=== PATIENT | male | born 1980 | race Caucasian/White ===

== ENCOUNTER 2020-07-06 20:49 | Inpatient (IN) ==
[2020-07-06 21:51] LABS: Basophils # 0.1 K/mcL (0.0-0.2); Basophils % 0.6 %; Eosinophils # 0.2 K/mcL (0.0-0.6); Eosinophils % 2.4 %; Hematocrit 38.7 % (37.5-50.1); Immature Granulocytes % 0.1 % (0-4); Lymphocytes # 1.4 K/mcL (0.6-4.6); Lymphocytes % 17.8 %; Mean Corpuscular Hemoglobin 27.6 pg (28.0-33.3); Mean Corpuscular Volume 89.2 fL (83.0-100.0); Mean Platelet Volume 10.4 fL (9.4-12.4); Monocytes # 0.6 K/mcL (0.0-1.3); Monocytes % 7.7 %; Neutrophils # 5.6 K/mcL (1.6-8.9); Platelet Count 251 K/mcL (140-400); Red Blood Count 4.34 M/mcL (4.19-5.50); Red Cell Distribution Width 13.2 % (11.5-14.5); Segmented Neutrophils % 71.4 %; White Blood Count 7.8 K/mcL (4.3-11.1)
[2020-07-06 22:12] LABS: BUN/Creatinine Ratio 18 (6-26); Blood Urea Nitrogen 18 mg/dL (6-20); Calcium 8.4 mg/dL (8.6-10.3); Carbon Dioxide 26 mEq/L (23-29); Chloride 103 mEq/L (98-107); Glucose 144 mg/dL (70-105); Osmolality,Calculated 288 (280-300); Potassium 4.2 mEq/L (3.5-5.1); Sodium 137 mEq/L (136-145); eGFR For African Americans > 60 (> 60); eGFR For Non-African Americans > 60 (> 60)
[2020-07-06 22:17] LABS: Troponin I 0.26 ng/mL (< 0.04)
[2020-07-06] MEDS ORDERED: Furosemide 40 MG/4 ML VIAL IVP ONE (22:28)
[2020-07-06] MEDS ORDERED: Aspirin 325 MG TABLET PO ONE (22:28)
[2020-07-06] MEDS ORDERED: Isovue-370 500 ML BOTTLE IVP ONE (22:30)
[2020-07-07] MEDS ORDERED: Ondansetron 4 MG/2 ML VIAL IVP PRN (00:25)
[2020-07-07] MEDS ORDERED: Naloxone 0.4 MG/ML INJ IVP PRN (00:25)
[2020-07-07 02:34] LABS: Basophils # 0.1 K/mcL (0.0-0.2); Basophils % 1.1 %; Eosinophils # 0.2 K/mcL (0.0-0.6); Eosinophils % 3.4 %; Hematocrit 37.4 % (37.5-50.1); Hemoglobin 11.5 g/dL (12.9-16.9); Immature Granulocytes % 0.5 % (0-4); Lymphocytes # 1.7 K/mcL (0.6-4.6); Lymphocytes % 26.1 %; Mean Corpuscular HGB Conc 30.7 g/dL (31.6-35.5); Mean Corpuscular Hemoglobin 27.3 pg (28.0-33.3); Mean Corpuscular Volume 88.8 fL (83.0-100.0); Mean Platelet Volume 10.2 fL (9.4-12.4); Monocytes # 0.7 K/mcL (0.0-1.3); Neutrophils # 3.8 K/mcL (1.6-8.9); Platelet Count 265 K/mcL (140-400); Red Blood Count 4.21 M/mcL (4.19-5.50); Red Cell Distribution Width 13.4 % (11.5-14.5); Segmented Neutrophils % 57.9 %; White Blood Count 6.6 K/mcL (4.3-11.1)
[2020-07-07 02:45] LABS: INR 1.3; Prothrombin Time 15.2 Seconds (9.4-12.1)
[2020-07-07 03:00] LABS: Alanine Aminotransferase 65 Units/L (7-52); Albumin/Globulin Ratio 1.5 (1.1-2.2); Alkaline Phosphatase 80 Units/L (34-104); Aspartate Amino Transferase 45 Units/L (13-39); BUN/Creatinine Ratio 18 (6-26); Bilirubin,Total 0.3 mg/dL (0.3-1.0); Blood Urea Nitrogen 17 mg/dL (6-20); Calcium 8.4 mg/dL (8.6-10.3); Carbon Dioxide 28 mEq/L (23-29); Chloride 103 mEq/L (98-107); Globulin 2.6 g/dL (2.4-3.5); Glucose 110 mg/dL (70-105); Magnesium 1.9 mg/dL (1.6-2.6); Osmolality,Calculated 288 (280-300); Potassium 3.8 mEq/L (3.5-5.1); Sodium 138 mEq/L (136-145); Total Protein 6.6 g/dL (6.4-8.9); Troponin I 0.25 ng/mL (< 0.04); eGFR For African Americans > 60 (> 60); eGFR For Non-African Americans > 60 (> 60)
[2020-07-07] MEDS ORDERED: Perflutren Lipid Microsphere 1.3 ML in 0.9 % Sodium Chloride 8.7 ML IVP PRN (07:28)
[2020-07-07] MEDS: Furosemide 40 MG/4 ML VIAL IVP SCH (08:22)
[2020-07-07] MEDS: *HR* Heparin 5,000 UNIT/ML VIAL SQ SCH ×2 (08:22→19:19)
[2020-07-07] MEDS: Acetaminophen 325 MG TABLET PO PRN (20:55)
[2020-07-08] MEDS: Melatonin 3 MG TABLET PO PRN (01:00)
[2020-07-08] MEDS: Acetaminophen 325 MG TABLET PO PRN (02:16)
[2020-07-08] MEDS: *HR* Heparin 5,000 UNIT/ML VIAL SQ SCH ×3 (05:20→19:49)
[2020-07-08] MEDS: Furosemide 40 MG/4 ML VIAL IVP SCH (09:07)
[2020-07-08] MEDS: carvediloL 6.25 MG TABLET PO SCH ×2 (09:08→15:43)
[2020-07-08] MEDS: lisinopriL 5 MG TABLET PO SCH ×2 (09:08→19:42)
[2020-07-08] MEDS: Aspirin 81 MG TAB.CHEW PO SCH (09:08)
[2020-07-08] MEDS: Gabapentin 300 MG CAPSULE PO SCH ×3 (09:08→19:42)
[2020-07-08 10:15] LABS: Basophils % 0.7 %; Eosinophils # 0.3 K/mcL (0.0-0.6); Eosinophils % 4.6 %; Hematocrit 42.7 % (37.5-50.1); Immature Granulocytes % 0.4 % (0-4); Lymphocytes # 1.4 K/mcL (0.6-4.6); Lymphocytes % 24.1 %; Mean Corpuscular HGB Conc 30.9 g/dL (31.6-35.5); Mean Corpuscular Hemoglobin 28.6 pg (28.0-33.3); Mean Corpuscular Volume 92.6 fL (83.0-100.0); Mean Platelet Volume 10.4 fL (9.4-12.4); Monocytes # 0.5 K/mcL (0.0-1.3); Monocytes % 9.1 %; Neutrophils # 3.4 K/mcL (1.6-8.9); Platelet Count 266 K/mcL (140-400); Red Blood Count 4.61 M/mcL (4.19-5.50); Red Cell Distribution Width 13.6 % (11.5-14.5); Segmented Neutrophils % 61.1 %; White Blood Count 5.6 K/mcL (4.3-11.1)
[2020-07-08 10:16] LABS: Hemoglobin 13.2 g/dL (12.9-16.9)
[2020-07-08 10:35] LABS: BUN/Creatinine Ratio 18 (6-26); Blood Urea Nitrogen 17 mg/dL (6-20); Calcium 9.3 mg/dL (8.6-10.3); Carbon Dioxide 31 mEq/L (23-29); Chloride 99 mEq/L (98-107); Glucose 174 mg/dL (70-105); Osmolality,Calculated 290 (280-300); Potassium 3.7 mEq/L (3.5-5.1); Sodium 137 mEq/L (136-145); eGFR For African Americans > 60 (> 60); eGFR For Non-African Americans > 60 (> 60)
[2020-07-08 16:09] LABS: ABG Base Excess 7 mEq/L (-2 to 3); ABG HCO3 35 mEq/L (21-27); ABG Oxygen Saturation 91 % (95-98); ABG PCO2 61 mmHg (35-45); ABG PH 7.36 pH Units (7.32-7.45); ABG PO2 66 mmHg (85-104); ABG TCO2 36 mEq/L (20-26)
[2020-07-08] MEDS: *HR* HYDROcodone/Acet 5/325 mg TABLET PO PRN (19:42)
[2020-07-09] MEDS: Acetaminophen 325 MG TABLET PO PRN ×3 (00:11→17:11)
[2020-07-09] MEDS: *HR* HYDROcodone/Acet 5/325 mg TABLET PO PRN ×3 (03:09→20:23)
[2020-07-09 05:39] LABS: ABG Base Excess 4 mEq/L (-2 to 3); ABG HCO3 30 mEq/L (21-27); ABG Oxygen Saturation 97 % (95-98); ABG PCO2 52 mmHg (35-45); ABG PH 7.38 pH Units (7.32-7.45); ABG PO2 97 mmHg (85-104); ABG TCO2 32 mEq/L (20-26)
[2020-07-09] MEDS: *HR* Heparin 5,000 UNIT/ML VIAL SQ SCH ×2 (05:43→17:11)
[2020-07-09] MEDS: Furosemide 40 MG/4 ML VIAL IVP SCH (07:42)
[2020-07-09] MEDS: Gabapentin 300 MG CAPSULE PO SCH ×3 (07:42→20:22)
[2020-07-09] MEDS: Aspirin 81 MG TAB.CHEW PO SCH (07:42)
[2020-07-09] MEDS: lisinopriL 5 MG TABLET PO SCH ×2 (07:42→20:22)
[2020-07-09] MEDS: carvediloL 6.25 MG TABLET PO SCH ×2 (07:43→17:11)
[2020-07-09] MEDS: Spironolactone 12.5 MG TABLET PO SCH (12:21)
[2020-07-09] MEDS ORDERED: Furosemide 40 MG/4 ML VIAL IVP ONE (14:28)
[2020-07-09] MEDS: Melatonin 3 MG TABLET PO PRN (20:23)
[2020-07-09] MEDS ORDERED: Furosemide 40 MG/4 ML VIAL IVP SCH (21:00)
[2020-07-10] MEDS: Acetaminophen 325 MG TABLET PO PRN (02:03)
[2020-07-10 03:46] LABS: BUN/Creatinine Ratio 20 (6-26); Blood Urea Nitrogen 20 mg/dL (6-20); Calcium 8.8 mg/dL (8.6-10.3); Carbon Dioxide 28 mEq/L (23-29); Chloride 101 mEq/L (98-107); Glucose 156 mg/dL (70-105); Osmolality,Calculated 292 (280-300); Potassium 3.8 mEq/L (3.5-5.1); Sodium 138 mEq/L (136-145); eGFR For African Americans > 60 (> 60); eGFR For Non-African Americans > 60 (> 60)
[2020-07-10] MEDS: *HR* Heparin 5,000 UNIT/ML VIAL SQ SCH (05:07)
[2020-07-10] MEDS: *HR* HYDROcodone/Acet 5/325 mg TABLET PO PRN (05:07)
[2020-07-10] MEDS ORDERED: Furosemide 40 MG/4 ML VIAL IVP SCH (09:00)
[2020-07-10] MEDS: Aspirin 81 MG TAB.CHEW PO SCH (09:06)
[2020-07-10] MEDS: Spironolactone 12.5 MG TABLET PO SCH (09:06)
[2020-07-10] MEDS: lisinopriL 5 MG TABLET PO SCH (09:06)
[2020-07-10] MEDS: carvediloL 6.25 MG TABLET PO SCH (09:06)
[2020-07-10] MEDS: Gabapentin 300 MG CAPSULE PO SCH (09:06)
[2020-07-10 11:02] VITALS: BP 118/75
== END 2020-07-10 14:25 | disposition home or self-care (01) | DRG 194 ==
LOC: 2ANU 20:49 → EMEROOARM 20:49 → SUATTDRO 23:11 → 2ANU 23:43
PROVIDERS: ADMIT Family Medicine; ATTEND Internal Medicine

== ENCOUNTER 2020-08-15 19:43 | Observation (INO) ==
[2020-08-15 20:49] LABS: Basophils # 0.1 K/mcL (0.0-0.2); Eosinophils # 0.4 K/mcL (0.0-0.6); Eosinophils % 5.2 %; Hematocrit 41.5 % (37.5-50.1); Hemoglobin 12.5 g/dL (12.9-16.9); Immature Granulocytes % 0.6 % (0-4); Lymphocytes # 1.5 K/mcL (0.6-4.6); Lymphocytes % 21.9 %; Mean Corpuscular HGB Conc 30.1 g/dL (31.6-35.5); Mean Corpuscular Hemoglobin 27.5 pg (28.0-33.3); Mean Corpuscular Volume 91.2 fL (83.0-100.0); Mean Platelet Volume 9.9 fL (9.4-12.4); Monocytes # 0.7 K/mcL (0.0-1.3); Monocytes % 9.8 %; Neutrophils # 4.3 K/mcL (1.6-8.9); Platelet Count 255 K/mcL (140-400); Red Blood Count 4.55 M/mcL (4.19-5.50); Red Cell Distribution Width 13.8 % (11.5-14.5); Segmented Neutrophils % 61.5 %
[2020-08-15 20:56] LABS: INR 1.1; Prothrombin Time 12.8 Seconds (9.4-12.1)
[2020-08-15 21:23] LABS: Troponin I 0.06 ng/mL (< 0.04)
[2020-08-15 21:54] LABS: BUN/Creatinine Ratio 17 (6-26); Blood Urea Nitrogen 14 mg/dL (6-20); Calcium 9.2 mg/dL (8.6-10.3); Carbon Dioxide 29 mEq/L (23-29); Chloride 103 mEq/L (98-107); Glucose 114 mg/dL (70-105); Osmolality,Calculated 289 (280-300); Sodium 139 mEq/L (136-145); eGFR For African Americans > 60 (> 60); eGFR For Non-African Americans > 60 (> 60)
[2020-08-15] MEDS ORDERED: *HR* HYDROcodone/Acet 7.5/325 mg TABLET PO ONE (22:03)
[2020-08-15] MEDS ORDERED: Furosemide 40 MG/4 ML VIAL IVP ONE (22:03)
[2020-08-16] MEDS ORDERED: Melatonin 3 MG TABLET PO PRN (01:08)
[2020-08-16] MEDS ORDERED: Naloxone 0.4 MG/ML INJ IVP PRN (01:08)
[2020-08-16] MEDS ORDERED: Ondansetron 4 MG/2 ML VIAL IVP PRN (01:08)
[2020-08-16] MEDS ORDERED: Acetaminophen 325 MG TABLET PO PRN (01:08)
[2020-08-16] MEDS: Gabapentin 300 MG CAPSULE PO SCH ×4 (01:28→19:20)
[2020-08-16 03:09] LABS: BUN/Creatinine Ratio 15 (6-26); Basophils # 0.1 K/mcL (0.0-0.2); Basophils % 0.8 %; Blood Urea Nitrogen 13 mg/dL (6-20); Calcium 8.9 mg/dL (8.6-10.3); Carbon Dioxide 29 mEq/L (23-29); Chloride 102 mEq/L (98-107); Eosinophils # 0.5 K/mcL (0.0-0.6); Eosinophils % 5.7 %; Glucose 142 mg/dL (70-105); Hematocrit 40.7 % (37.5-50.1); Hemoglobin 12.4 g/dL (12.9-16.9); Immature Granulocytes % 0.6 % (0-4); Lymphocytes # 1.8 K/mcL (0.6-4.6); Lymphocytes % 22.3 %; Magnesium 1.9 mg/dL (1.6-2.6); Mean Corpuscular HGB Conc 30.5 g/dL (31.6-35.5); Mean Corpuscular Hemoglobin 27.7 pg (28.0-33.3); Mean Corpuscular Volume 90.8 fL (83.0-100.0); Mean Platelet Volume 10.1 fL (9.4-12.4); Monocytes # 0.7 K/mcL (0.0-1.3); Monocytes % 9.2 %; Neutrophils # 4.9 K/mcL (1.6-8.9); Osmolality,Calculated 291 (280-300); Phosphorous 3.5 mg/dL (2.7-4.5); Platelet Count 262 K/mcL (140-400); Potassium 3.4 mEq/L (3.5-5.1); Red Blood Count 4.48 M/mcL (4.19-5.50); Red Cell Distribution Width 13.8 % (11.5-14.5); Segmented Neutrophils % 61.4 %; Sodium 139 mEq/L (136-145); White Blood Count 7.9 K/mcL (4.3-11.1); eGFR For African Americans > 60 (> 60); eGFR For Non-African Americans > 60 (> 60)
[2020-08-16 03:19] LABS: INR 1.1; Prothrombin Time 13.2 Seconds (9.4-12.1)
[2020-08-16] MEDS: Aspirin 81 MG TAB.CHEW PO SCH (08:09)
[2020-08-16] MEDS: carvediloL 6.25 MG TABLET PO SCH ×2 (08:09→18:27)
[2020-08-16] MEDS: Furosemide 40 MG/4 ML VIAL IVP SCH ×2 (08:09→18:27)
[2020-08-16 09:09] LABS: ABG Base Excess 3 mEq/L (-2 to 3); ABG HCO3 31 mEq/L (21-27); ABG Oxygen Saturation 60 % (95-98); ABG PCO2 58 mmHg (35-45); ABG PH 7.33 pH Units (7.32-7.45); ABG PO2 34 mmHg (85-104); ABG TCO2 33 mEq/L (20-26)
[2020-08-16] MEDS: *HR* HYDROcodone/Acet 5/325 mg TABLET PO PRN ×2 (10:33→18:27)
[2020-08-16] MEDS: Spironolactone 12.5 MG TABLET PO SCH (15:40)
[2020-08-17] MEDS: *HR* HYDROcodone/Acet 5/325 mg TABLET PO PRN ×2 (01:03→09:04)
[2020-08-17] MEDS ORDERED: *HR* Enoxaparin 40 MG/0.4 ML SYRINGE SQ SCH (06:00)
[2020-08-17 06:55] LABS: Hematocrit 43.9 % (37.5-50.1); Mean Corpuscular HGB Conc 29.6 g/dL (31.6-35.5); Mean Corpuscular Hemoglobin 27.5 pg (28.0-33.3); Mean Corpuscular Volume 92.8 fL (83.0-100.0); Mean Platelet Volume 10.3 fL (9.4-12.4); Platelet Count 269 K/mcL (140-400); Red Blood Count 4.73 M/mcL (4.19-5.50); Red Cell Distribution Width 13.7 % (11.5-14.5); White Blood Count 6.8 K/mcL (4.3-11.1)
[2020-08-17 07:00] VITALS: BP 126/83
[2020-08-17 07:27] LABS: Alanine Aminotransferase 30 Units/L (7-52); Albumin 4.5 g/dL (3.5-5.7); Albumin/Globulin Ratio 1.6 (1.1-2.2); Alkaline Phosphatase 89 Units/L (34-104); Aspartate Amino Transferase 22 Units/L (13-39); BUN/Creatinine Ratio 19 (6-26); Bilirubin,Total 0.4 mg/dL (0.3-1.0); Blood Urea Nitrogen 18 mg/dL (6-20); Calcium 9.2 mg/dL (8.6-10.3); Carbon Dioxide 29 mEq/L (23-29); Chloride 99 mEq/L (98-107); Globulin 2.8 g/dL (2.4-3.5); Glucose 135 mg/dL (70-105); Osmolality,Calculated 290 (280-300); Potassium 3.5 mEq/L (3.5-5.1); Sodium 138 mEq/L (136-145); Total Protein 7.3 g/dL (6.4-8.9); eGFR For African Americans > 60 (> 60); eGFR For Non-African Americans > 60 (> 60)
[2020-08-17] MEDS: Furosemide 40 MG/4 ML VIAL IVP SCH (09:03)
[2020-08-17] MEDS: Gabapentin 300 MG CAPSULE PO SCH (09:04)
[2020-08-17] MEDS: Aspirin 81 MG TAB.CHEW PO SCH (09:04)
[2020-08-17] MEDS: Spironolactone 12.5 MG TABLET PO SCH (09:04)
[2020-08-17] MEDS: carvediloL 6.25 MG TABLET PO SCH (09:04)
== END 2020-08-17 13:19 | disposition home or self-care (01) ==
LOC: 3BNU 19:43 → EMEROOARM 19:43 → SUATTDRO 23:03 → 3BNU 08-16 00:01
PROVIDERS: ADMIT Internal Medicine; ATTEND Registered Nurse

== ENCOUNTER 2021-03-27 19:34 | Inpatient (IN) ==
[2021-03-27 23:40] LABS: Basophils # 0.1 K/mcL (0.0-0.2); Basophils % 0.6 %; Eosinophils # 0.4 K/mcL (0.0-0.6); Eosinophils % 4.3 %; Hematocrit 42.4 % (37.5-50.1); Hemoglobin 13.1 g/dL (12.9-16.9); Immature Granulocytes % 0.3 % (0-4); Lymphocytes # 1.8 K/mcL (0.6-4.6); Lymphocytes % 19.3 %; Mean Corpuscular HGB Conc 30.9 g/dL (31.6-35.5); Mean Corpuscular Hemoglobin 27.2 pg (28.0-33.3); Mean Corpuscular Volume 88.1 fL (83.0-100.0); Mean Platelet Volume 10.2 fL (9.4-12.4); Monocytes # 0.8 K/mcL (0.0-1.3); Monocytes % 8.5 %; Neutrophils # 6.2 K/mcL (1.6-8.9); Platelet Count 295 K/mcL (140-400); Red Blood Count 4.81 M/mcL (4.19-5.50); Red Cell Distribution Width 14.7 % (11.5-14.5); White Blood Count 9.3 K/mcL (4.3-11.1)
[2021-03-27 23:49] LABS: INR 1.3; Prothrombin Time 14.8 Seconds (9.4-12.1)
[2021-03-27 23:51] LABS: Activated Partial Thrombo Time 34.5 Seconds (26.0-36.0)
[2021-03-28] LABS: Alanine Aminotransferase 35 Units/L (7-52); Albumin 4.2 g/dL (3.5-5.7); Albumin/Globulin Ratio 1.6 (1.1-2.2); Alkaline Phosphatase 70 Units/L (34-104); Aspartate Amino Transferase 26 Units/L (13-39); BUN/Creatinine Ratio 15 (6-26); Bilirubin,Total 0.5 mg/dL (0.3-1.0); Blood Urea Nitrogen 14 mg/dL (6-20); Calcium 8.9 mg/dL (8.6-10.3); Carbon Dioxide 28 mEq/L (23-29); Chloride 101 mEq/L (98-107); Globulin 2.7 g/dL (2.4-3.5); Glucose 105 mg/dL (70-105); Osmolality,Calculated 287 (280-300); Potassium 3.5 mEq/L (3.5-5.1); Sodium 138 mEq/L (136-145); Total Protein 6.9 g/dL (6.4-8.9); eGFR For African Americans > 60 (> 60); eGFR For Non-African Americans > 60 (> 60)
[2021-03-28 00:30] LABS: Troponin I 0.12 ng/mL (< 0.04)
[2021-03-28] MEDS ORDERED: methocarbamoL 750 MG TABLET PO ONE (00:45)
[2021-03-28] MEDS ORDERED: Furosemide 40 MG/4 ML VIAL IVP ONE (02:06)
[2021-03-28] MEDS ORDERED: Acetaminophen 325 MG TABLET PO PRN (03:34)
[2021-03-28] MEDS ORDERED: Naloxone 0.4 MG/ML INJ IVP PRN (03:34)
[2021-03-28] MEDS ORDERED: Ondansetron 4 MG/2 ML VIAL IVP PRN (03:34)
[2021-03-28 05:38] LABS: Hematocrit 44.5 % (37.5-50.1); Hemoglobin 13.6 g/dL (12.9-16.9); Mean Corpuscular HGB Conc 30.6 g/dL (31.6-35.5); Mean Corpuscular Volume 88.5 fL (83.0-100.0); Mean Platelet Volume 10.7 fL (9.4-12.4); Platelet Count 335 K/mcL (140-400); Red Blood Count 5.03 M/mcL (4.19-5.50); White Blood Count 9.5 K/mcL (4.3-11.1)
[2021-03-28 05:49] LABS: INR 1.3
[2021-03-28 05:58] LABS: BUN/Creatinine Ratio 13 (6-26); Blood Urea Nitrogen 13 mg/dL (6-20); Calcium 9.2 mg/dL (8.6-10.3); Carbon Dioxide 27 mEq/L (23-29); Chloride 103 mEq/L (98-107); Chol/HDL Ratio 6.4 (0-4.9); Cholesterol 186 mg/dL (< 200); Glucose 109 mg/dL (70-105); HDL Cholesterol 29 mg/dL (40-59); LDL Cholesterol,Calculated 116 mg/dL (< 100); Magnesium 1.9 mg/dL (1.6-2.6); Osmolality,Calculated 281 (280-300); Phosphorous 3.2 mg/dL (2.7-4.5); Potassium 3.5 mEq/L (3.5-5.1); Sodium 135 mEq/L (136-145); Triglycerides 206 mg/dL (< 150); eGFR For African Americans > 60 (> 60); eGFR For Non-African Americans > 60 (> 60)
[2021-03-28] MEDS ORDERED: Perflutren Lipid Microsphere 1.3 ML in 0.9 % Sodium Chloride 8.7 ML IVP PRN (07:07)
[2021-03-28] MEDS: *HR* OxyCODONE Immed Rel 5 MG TABLET PO PRN ×2 (07:46→17:41)
[2021-03-28] MEDS: Aspirin 81 MG TAB.CHEW PO SCH (07:46)
[2021-03-28] MEDS: carvediloL 6.25 MG TABLET PO SCH ×2 (07:47→17:41)
[2021-03-28] MEDS: Sacubitril/Valsartan 49/51 MG 1 TABLET PO SCH ×2 (07:47→20:57)
[2021-03-28] MEDS: *HR* Enoxaparin 40 MG/0.4 ML SYRINGE SQ SCH ×2 (07:47→20:57)
[2021-03-28] MEDS: Spironolactone 12.5 MG TABLET PO SCH (07:47)
[2021-03-28] MEDS ORDERED: Furosemide 40 MG/4 ML VIAL IVP SCH (09:00)
[2021-03-28 09:24] LABS: Amphetamine Screen,Urine Negative ng/mL (Cutoff=1000); Barbiturate Screen,Urine Negative ng/mL (Cutoff=200); Benzodiazepines Screen,Urine Negative ng/mL (Cutoff=200); Cannabinoid Screen,Urine Positive ng/mL (Cutoff = 50); Cocaine Screen,Urine Negative ng/mL (Cutoff= 300); Opiate Screen,Urine Negative ng/mL (Cutoff=300); Phencyclidine Screen,Urine Negative ng/mL (Cutoff=25)
[2021-03-28] MEDS: Furosemide 40 MG/4 ML VIAL IVP SCH (17:41)
[2021-03-28] MEDS ORDERED: Furosemide 20 MG/2 ML VIAL IVP SCH (18:00)
[2021-03-29 04:10] LABS: Basophils # 0.1 K/mcL (0.0-0.2); Basophils % 1.2 %; Eosinophils # 0.3 K/mcL (0.0-0.6); Eosinophils % 5.3 %; Hematocrit 41.6 % (37.5-50.1); Hemoglobin 13.1 g/dL (12.9-16.9); Immature Granulocytes % 0.3 % (0-4); Lymphocytes # 1.9 K/mcL (0.6-4.6); Lymphocytes % 28.7 %; Mean Corpuscular HGB Conc 31.5 g/dL (31.6-35.5); Mean Corpuscular Hemoglobin 27.9 pg (28.0-33.3); Mean Corpuscular Volume 88.5 fL (83.0-100.0); Mean Platelet Volume 10.9 fL (9.4-12.4); Monocytes # 0.7 K/mcL (0.0-1.3); Monocytes % 10.4 %; Neutrophils # 3.5 K/mcL (1.6-8.9); Platelet Count 304 K/mcL (140-400); Red Cell Distribution Width 14.7 % (11.5-14.5); Segmented Neutrophils % 54.1 %; White Blood Count 6.4 K/mcL (4.3-11.1)
[2021-03-29 04:11] LABS: BUN/Creatinine Ratio 14 (6-26); Blood Urea Nitrogen 15 mg/dL (6-20); Calcium 9.1 mg/dL (8.6-10.3); Carbon Dioxide 31 mEq/L (23-29); Chloride 101 mEq/L (98-107); Glucose 106 mg/dL (70-105); Osmolality,Calculated 279 (280-300); Potassium 3.1 mEq/L (3.5-5.1); Sodium 134 mEq/L (136-145); eGFR For African Americans > 60 (> 60); eGFR For Non-African Americans > 60 (> 60)
[2021-03-29] MEDS: Furosemide 40 MG/4 ML VIAL IVP SCH ×2 (05:12→16:53)
[2021-03-29] MEDS: *HR* Enoxaparin 40 MG/0.4 ML SYRINGE SQ SCH (08:01)
[2021-03-29] MEDS: Aspirin 81 MG TAB.CHEW PO SCH (08:01)
[2021-03-29] MEDS: Spironolactone 12.5 MG TABLET PO SCH (08:01)
[2021-03-29] MEDS: Sacubitril/Valsartan 49/51 MG 1 TABLET PO SCH ×2 (08:01→22:16)
[2021-03-29] MEDS: *HR* OxyCODONE Immed Rel 5 MG TABLET PO PRN ×3 (08:01→22:15)
[2021-03-29] MEDS: carvediloL 6.25 MG TABLET PO SCH ×2 (08:01→15:51)
[2021-03-30] MEDS: Furosemide 40 MG/4 ML VIAL IVP SCH (05:48)
[2021-03-30 07:33] LABS: Basophils # 0.1 K/mcL (0.0-0.2); Basophils % 1.1 %; Eosinophils # 0.4 K/mcL (0.0-0.6); Eosinophils % 5.7 %; Hematocrit 44.4 % (37.5-50.1); Immature Granulocytes % 0.3 % (0-4); Lymphocytes # 1.8 K/mcL (0.6-4.6); Lymphocytes % 23.2 %; Mean Corpuscular HGB Conc 31.5 g/dL (31.6-35.5); Mean Corpuscular Hemoglobin 27.9 pg (28.0-33.3); Mean Corpuscular Volume 88.6 fL (83.0-100.0); Mean Platelet Volume 10.4 fL (9.4-12.4); Monocytes # 0.8 K/mcL (0.0-1.3); Neutrophils # 4.4 K/mcL (1.6-8.9); Platelet Count 323 K/mcL (140-400); Red Blood Count 5.01 M/mcL (4.19-5.50); Red Cell Distribution Width 14.8 % (11.5-14.5); Segmented Neutrophils % 58.7 %; White Blood Count 7.6 K/mcL (4.3-11.1)
[2021-03-30 07:36] VITALS: BP 122/73; PULSE 74; TEMP 97.6; O2SAT 96
[2021-03-30 07:50] LABS: BUN/Creatinine Ratio 19 (6-26); Blood Urea Nitrogen 19 mg/dL (6-20); Carbon Dioxide 28 mEq/L (23-29); Chloride 105 mEq/L (98-107); Glucose 134 mg/dL (70-105); Osmolality,Calculated 282 (280-300); Potassium 3.7 mEq/L (3.5-5.1); Sodium 134 mEq/L (136-145); eGFR For African Americans > 60 (> 60); eGFR For Non-African Americans > 60 (> 60)
[2021-03-30] MEDS ORDERED: *HR* Enoxaparin 40 MG/0.4 ML SYRINGE SQ SCH (09:00)
[2021-03-30] MEDS: Sacubitril/Valsartan 49/51 MG 1 TABLET PO SCH (09:08)
[2021-03-30] MEDS: Spironolactone 12.5 MG TABLET PO SCH (09:09)
[2021-03-30] MEDS: carvediloL 6.25 MG TABLET PO SCH (09:09)
[2021-03-30] MEDS: Aspirin 81 MG TAB.CHEW PO SCH (09:09)
[2021-03-30] MEDS: *HR* OxyCODONE Immed Rel 5 MG TABLET PO PRN (09:12)
== END 2021-03-30 12:18 | disposition home or self-care (01) | DRG 194 ==
LOC: 3BNU 19:34 → EMEROOARM 19:34 → SUATTDRO 03-28 03:33 → 3BNU 03-28 04:27 → SUATTDRO 03-29 20:23
PROVIDERS: ADMIT Internal Medicine; ATTEND Registered Nurse

== ENCOUNTER 2021-05-07 09:58 | Observation (INO) ==
[2021-05-07 12:56] LABS: Basophils # 0.1 K/mcL (0.0-0.2); Basophils % 0.6 %; Eosinophils # 0.3 K/mcL (0.0-0.6); Eosinophils % 3.4 %; Hematocrit 44.5 % (37.5-50.1); Hemoglobin 14.1 g/dL (12.9-16.9); Immature Granulocytes % 0.5 % (0-4); Lymphocytes # 1.4 K/mcL (0.6-4.6); Mean Corpuscular HGB Conc 31.7 g/dL (31.6-35.5); Mean Corpuscular Hemoglobin 28.1 pg (28.0-33.3); Mean Corpuscular Volume 88.6 fL (83.0-100.0); Mean Platelet Volume 10.5 fL (9.4-12.4); Monocytes # 0.6 K/mcL (0.0-1.3); Monocytes % 8.1 %; Neutrophils # 5.5 K/mcL (1.6-8.9); Platelet Count 263 K/mcL (140-400); Red Blood Count 5.02 M/mcL (4.19-5.50); Red Cell Distribution Width 14.6 % (11.5-14.5); Segmented Neutrophils % 69.4 %; White Blood Count 7.9 K/mcL (4.3-11.1)
[2021-05-07 13:29] LABS: BUN/Creatinine Ratio 14 (6-26); Blood Urea Nitrogen 13 mg/dL (6-20); Calcium 9.3 mg/dL (8.6-10.3); Carbon Dioxide 26 mEq/L (23-29); Chloride 105 mEq/L (98-107); Glucose 118 mg/dL (70-105); Osmolality,Calculated 293 (280-300); Potassium 3.9 mEq/L (3.5-5.1); Sodium 141 mEq/L (136-145); eGFR For African Americans > 60 (> 60); eGFR For Non-African Americans > 60 (> 60)
[2021-05-07] MEDS ORDERED: Furosemide 40 MG/4 ML VIAL IVP ONE (14:03)
[2021-05-07] MEDS ORDERED: Ketorolac 30 MG/ML VIAL IVP ONE (14:35)
[2021-05-07 15:42] LABS: Troponin I 0.06 ng/mL (< 0.04)
[2021-05-07 15:55] LABS: INR 1.3; Prothrombin Time 14.2 Seconds (9.4-12.1)
[2021-05-07 15:58] LABS: Activated Partial Thrombo Time 33.5 Seconds (26.0-36.0)
[2021-05-07] MEDS ORDERED: Melatonin 3 MG TABLET PO PRN (15:58)
[2021-05-07] MEDS ORDERED: Acetaminophen 325 MG TABLET PO PRN (15:58)
[2021-05-07] MEDS ORDERED: Naloxone 0.4 MG/ML INJ IVP PRN (15:58)
[2021-05-07] MEDS ORDERED: Isovue-370 500 ML BOTTLE IVP ONE (16:26)
[2021-05-07 16:33] LABS: Influenza A PCR Negative (Negative); Influenza B PCR Negative (Negative); Resp. Syncytial Virus PCR Negative (Negative); SARS-CoV-2 by PCR (In House) Negative (Negative)
[2021-05-07] MEDS: carvediloL 25 MG TABLET PO SCH (17:46)
[2021-05-07] MEDS: *HR* Heparin 5,000 UNIT/ML VIAL SQ SCH (17:47)
[2021-05-07] MEDS: Sacubitril/Valsartan 49/51 MG 1 TABLET PO SCH (22:30)
[2021-05-08 04:33] LABS: Basophils # 0.1 K/mcL (0.0-0.2); Basophils % 0.9 %; Eosinophils # 0.3 K/mcL (0.0-0.6); Eosinophils % 4.3 %; Hematocrit 43.7 % (37.5-50.1); Hemoglobin 13.6 g/dL (12.9-16.9); Immature Granulocytes % 0.3 % (0-4); Lymphocytes # 1.6 K/mcL (0.6-4.6); Lymphocytes % 24.6 %; Mean Corpuscular HGB Conc 31.1 g/dL (31.6-35.5); Mean Corpuscular Hemoglobin 27.6 pg (28.0-33.3); Mean Corpuscular Volume 88.6 fL (83.0-100.0); Mean Platelet Volume 10.7 fL (9.4-12.4); Monocytes # 0.7 K/mcL (0.0-1.3); Monocytes % 10.5 %; Platelet Count 252 K/mcL (140-400); Red Blood Count 4.93 M/mcL (4.19-5.50); Red Cell Distribution Width 14.7 % (11.5-14.5); Segmented Neutrophils % 59.4 %; White Blood Count 6.7 K/mcL (4.3-11.1)
[2021-05-08] MEDS: *HR* Heparin 5,000 UNIT/ML VIAL SQ SCH (05:30)
[2021-05-08] MEDS ORDERED: Spironolactone 12.5 MG TABLET PO SCH (09:00)
[2021-05-08] MEDS ORDERED: Aspirin 81 MG TAB.CHEW PO SCH (09:00)
[2021-05-08] MEDS ORDERED: Furosemide 40 MG/4 ML VIAL IVP SCH (09:00)
[2021-05-08] MEDS: Sacubitril/Valsartan 49/51 MG 1 TABLET PO SCH (09:09)
[2021-05-08] MEDS: carvediloL 25 MG TABLET PO SCH (09:09)
[2021-05-08 12:32] VITALS: BP 159/94; PULSE 80; TEMP 97.3; O2SAT 98
== END 2021-05-08 14:43 | disposition home or self-care (01) ==
LOC: 3ANU 09:58 → EMEROOARM 09:58 → 3ANU 17:00
PROVIDERS: ADMIT Student in an Organized Health Care Education/Training Program; ATTEND Student in an Organized Health Care Education/Training Program

== ENCOUNTER 2021-08-22 02:21 | Inpatient (IN) ==
[2021-08-22] MEDS ORDERED: Furosemide 40 MG/4 ML VIAL IVP ONE ×2 (02:36→04:11)
[2021-08-22 03:08] LABS: Basophils % 0.4 %; Eosinophils # 0.1 K/mcL (0.0-0.6); Hematocrit 43.4 % (37.5-50.1); Hemoglobin 12.8 g/dL (12.9-16.9); Immature Granulocytes % 0.2 % (0-4); Lymphocytes # 0.8 K/mcL (0.6-4.6); Lymphocytes % 8.9 %; Mean Corpuscular HGB Conc 29.5 g/dL (31.6-35.5); Mean Corpuscular Volume 91.6 fL (83.0-100.0); Mean Platelet Volume 10.4 fL (9.4-12.4); Monocytes # 0.8 K/mcL (0.0-1.3); Monocytes % 8.6 %; Neutrophils # 7.2 K/mcL (1.6-8.9); Platelet Count 341 K/mcL (140-400); Red Blood Count 4.74 M/mcL (4.19-5.50); Red Cell Distribution Width 13.6 % (11.5-14.5); Segmented Neutrophils % 80.9 %; White Blood Count 8.9 K/mcL (4.3-11.1)
[2021-08-22 03:28] LABS: Troponin I 0.17 ng/mL (< 0.04)
[2021-08-22 03:49] LABS: Bilirubin,Urine Negative (Negative); Blood,Urine Small (Negative); Clarity,Urine Clear (Clear); Color,Urine Yellow (Yellow); Glucose,Urine (UA) Normal (Normal); Hyaline Casts,Urine Few per lpf (None Seen); Ketones,Urine Negative (Negative); Leukocyte Esterase,Urine Moderate (Negative); Mucus,Urine Moderate per lpf (None-Few); Nitrite,Urine Negative (Negative); PH,Urine 6.5 pH Units (5.0-8.0); Protein,Urine >=600 mg/dL (Neg-Trace); RBC,Urine 0-3 per hpf (0-3); Specific Gravity,Urine 1.025 (1.010-1.025); Squamous Epithelial Cell,Urine Few per hpf (None-Few); Urobilinogen,Urine Normal (Normal); WBC,Urine 15-30 per hpf (0-3)
[2021-08-22 03:54] LABS: Alanine Aminotransferase 8 Units/L (7-52); Albumin/Globulin Ratio 1.3 (1.1-2.2); Alkaline Phosphatase 76 Units/L (34-104); Aspartate Amino Transferase 12 Units/L (13-39); BUN/Creatinine Ratio 17 (6-26); Bilirubin,Direct 0.1 mg/dL (0.0-0.2); Bilirubin,Indirect 0.5 mg/dL (0.0-1.0); Bilirubin,Total 0.6 mg/dL (0.3-1.0); Blood Urea Nitrogen 14 mg/dL (6-20); Calcium 9.4 mg/dL (8.6-10.3); Carbon Dioxide 31 mEq/L (23-29); Chloride 96 mEq/L (98-107); Globulin 3.2 g/dL (2.4-3.5); Glucose 108 mg/dL (70-105); Osmolality,Calculated 289 (280-300); Potassium 3.8 mEq/L (3.5-5.1); Sodium 139 mEq/L (136-145); Total Protein 7.2 g/dL (6.4-8.9); eGFR For African Americans > 60 (> 60); eGFR For Non-African Americans > 60 (> 60)
[2021-08-22] MEDS ORDERED: Melatonin 3 MG TABLET PO PRN (04:25)
[2021-08-22] MEDS ORDERED: Naloxone 0.4 MG/ML INJ IVP PRN (04:25)
[2021-08-22] MEDS ORDERED: Perflutren Lipid Microsphere 1.3 ML in 0.9 % Sodium Chloride 8.7 ML IVP PRN (04:25)
[2021-08-22] MEDS ORDERED: Ondansetron 4 MG/2 ML VIAL IVP PRN (04:25)
[2021-08-22] MEDS: Furosemide 40 MG/4 ML VIAL IVP SCH ×2 (08:08→16:03)
[2021-08-22] MEDS: Acetaminophen 325 MG TABLET PO PRN ×2 (10:53→17:44)
[2021-08-22] MEDS: *HR* Heparin 5,000 UNIT/ML VIAL SQ SCH ×2 (14:03→21:43)
[2021-08-22] MEDS: carvediloL 6.25 MG TABLET PO SCH (16:03)
[2021-08-23] MEDS: *HR* Heparin 5,000 UNIT/ML VIAL SQ SCH ×3 (05:36→21:40)
[2021-08-23 05:46] LABS: Hemoglobin 11.9 g/dL (12.9-16.9); Mean Corpuscular Hemoglobin 27.3 pg (28.0-33.3); Mean Platelet Volume 10.4 fL (9.4-12.4); Platelet Count 307 K/mcL (140-400); Red Blood Count 4.36 M/mcL (4.19-5.50); Red Cell Distribution Width 13.7 % (11.5-14.5); White Blood Count 8.8 K/mcL (4.3-11.1)
[2021-08-23] MEDS: Aspirin Enteric Coated 81 MG Tablet PO SCH (08:48)
[2021-08-23] MEDS: carvediloL 6.25 MG TABLET PO SCH ×2 (08:48→16:18)
[2021-08-23] MEDS: Furosemide 40 MG/4 ML VIAL IVP SCH ×2 (08:49→16:18)
[2021-08-24 01:12] LABS: Basophils # 0.1 K/mcL (0.0-0.2); Basophils % 0.8 %; Eosinophils # 0.3 K/mcL (0.0-0.6); Eosinophils % 3.6 %; Hematocrit 43.5 % (37.5-50.1); Immature Granulocytes % 0.4 % (0-4); Immature Platelets 3.6 % (1.1-6.1); Lymphocytes # 1.1 K/mcL (0.6-4.6); Lymphocytes % 12.9 %; Mean Corpuscular HGB Conc 29.9 g/dL (31.6-35.5); Mean Corpuscular Hemoglobin 27.6 pg (28.0-33.3); Mean Corpuscular Volume 92.4 fL (83.0-100.0); Mean Platelet Volume 10.5 fL (9.4-12.4); Monocytes # 0.8 K/mcL (0.0-1.3); Monocytes % 9.3 %; Neutrophils # 6.1 K/mcL (1.6-8.9); Platelet Count 284 K/mcL (140-400); Red Blood Count 4.71 M/mcL (4.19-5.50); Red Cell Distribution Width 13.8 % (11.5-14.5); White Blood Count 8.3 K/mcL (4.3-11.1)
[2021-08-24 01:47] LABS: Platelet Estimate Normal (Normal)
[2021-08-24 02:26] LABS: BUN/Creatinine Ratio 19 (6-26); Blood Urea Nitrogen 18 mg/dL (6-20); Calcium 8.7 mg/dL (8.6-10.3); Carbon Dioxide 41 mEq/L (23-29); Chloride 95 mEq/L (98-107); Glucose 133 mg/dL (70-105); Magnesium 2.1 mg/dL (1.6-2.6); Osmolality,Calculated 294 (280-300); Potassium 3.8 mEq/L (3.5-5.1); Sodium 140 mEq/L (136-145); eGFR For African Americans > 60 (> 60); eGFR For Non-African Americans > 60 (> 60)
[2021-08-24] MEDS: Acetaminophen 325 MG TABLET PO PRN ×2 (05:43→18:55)
[2021-08-24] MEDS: *HR* Heparin 5,000 UNIT/ML VIAL SQ SCH ×3 (05:44→21:44)
[2021-08-24] MEDS: Furosemide 40 MG TABLET PO SCH (09:35)
[2021-08-24] MEDS: Aspirin Enteric Coated 81 MG Tablet PO SCH (09:35)
[2021-08-24] MEDS: Spironolactone 25 MG TABLET PO SCH (09:36)
[2021-08-24] MEDS: carvediloL 6.25 MG TABLET PO SCH ×2 (09:36→17:10)
[2021-08-24] MEDS: Sacubitril/Valsartan 49/51 MG 1 TABLET PO SCH ×2 (12:52→21:43)
[2021-08-24] MEDS: Fluticasone Propionate Nasal 50 MCG/SPRAY BOTTLE NS SCH (21:43)
[2021-08-25 04:03] LABS: Basophils # 0.1 K/mcL (0.0-0.2); Basophils % 0.8 %; Eosinophils # 0.4 K/mcL (0.0-0.6); Eosinophils % 4.6 %; Hematocrit 38.2 % (37.5-50.1); Immature Granulocytes % 0.5 % (0-4); Lymphocytes % 13.8 %; Mean Corpuscular HGB Conc 29.1 g/dL (31.6-35.5); Mean Corpuscular Hemoglobin 27.3 pg (28.0-33.3); Mean Corpuscular Volume 93.9 fL (83.0-100.0); Mean Platelet Volume 10.5 fL (9.4-12.4); Monocytes # 0.7 K/mcL (0.0-1.3); Monocytes % 9.2 %; Neutrophils # 5.4 K/mcL (1.6-8.9); Platelet Count 288 K/mcL (140-400); Red Blood Count 4.07 M/mcL (4.19-5.50); Red Cell Distribution Width 13.7 % (11.5-14.5); Segmented Neutrophils % 71.1 %; White Blood Count 7.5 K/mcL (4.3-11.1)
[2021-08-25 04:04] LABS: Hemoglobin 11.1 g/dL (12.9-16.9)
[2021-08-25 04:14] LABS: VBG HCO3 39 mEq/L (21-27); VBG PCO2 86 mmHg (41-51); VBG PH 7.26 pH Units (7.32-7.42); VBG PO2 42 mmHg (25-50)
[2021-08-25 04:15] LABS: BUN/Creatinine Ratio 19 (6-26); Blood Urea Nitrogen 16 mg/dL (6-20); Calcium 8.9 mg/dL (8.6-10.3); Carbon Dioxide 38 mEq/L (23-29); Chloride 98 mEq/L (98-107); Glucose 96 mg/dL (70-105); Osmolality,Calculated 291 (280-300); Potassium 3.6 mEq/L (3.5-5.1); Sodium 140 mEq/L (136-145); eGFR For African Americans > 60 (> 60); eGFR For Non-African Americans > 60 (> 60)
[2021-08-25] MEDS: *HR* Heparin 5,000 UNIT/ML VIAL SQ SCH (05:23)
[2021-08-25 07:26] VITALS: TEMP 97.5
[2021-08-25] MEDS: Sacubitril/Valsartan 49/51 MG 1 TABLET PO SCH (09:06)
[2021-08-25] MEDS: Spironolactone 25 MG TABLET PO SCH (09:06)
[2021-08-25] MEDS: Aspirin Enteric Coated 81 MG Tablet PO SCH (09:06)
[2021-08-25] MEDS: carvediloL 6.25 MG TABLET PO SCH (09:06)
[2021-08-25] MEDS: Furosemide 40 MG TABLET PO SCH (09:06)
[2021-08-25] MEDS: Fluticasone Propionate Nasal 50 MCG/SPRAY BOTTLE NS SCH (09:07)
[2021-08-25 11:16] VITALS: BP 130/84; PULSE 100; O2SAT 99
== END 2021-08-25 15:51 | disposition home or self-care (01) | DRG 194 ==
LOC: 2ANU 02:21 → EMEROOARM 02:21 → SUATTDRO 04:30 → 2ANU 05:50
PROVIDERS: ADMIT Internal Medicine; ATTEND Pharmacist

== ENCOUNTER 2021-09-04 10:43 | Inpatient (IN) ==
[2021-09-04] MEDS ORDERED: Furosemide 40 MG/4 ML VIAL IVP ONE (11:50)
[2021-09-04] MEDS ORDERED: *HR* HYDROcodone/Acet 5/325 mg TABLET PO ONE (11:51)
[2021-09-04 11:56] LABS: Basophils # 0.1 K/mcL (0.0-0.2); Basophils % 0.7 %; Eosinophils # 0.3 K/mcL (0.0-0.6); Eosinophils % 3.3 %; Hematocrit 37.8 % (37.5-50.1); Hemoglobin 11.1 g/dL (12.9-16.9); Immature Granulocytes % 0.4 % (0-4); Lymphocytes # 1.2 K/mcL (0.6-4.6); Lymphocytes % 15.5 %; Mean Corpuscular HGB Conc 29.4 g/dL (31.6-35.5); Mean Corpuscular Hemoglobin 27.2 pg (28.0-33.3); Mean Corpuscular Volume 92.6 fL (83.0-100.0); Mean Platelet Volume 10.5 fL (9.4-12.4); Monocytes # 0.7 K/mcL (0.0-1.3); Monocytes % 9.6 %; Neutrophils # 5.3 K/mcL (1.6-8.9); Platelet Count 261 K/mcL (140-400); Red Blood Count 4.08 M/mcL (4.19-5.50); Red Cell Distribution Width 13.7 % (11.5-14.5); Segmented Neutrophils % 70.5 %; White Blood Count 7.5 K/mcL (4.3-11.1)
[2021-09-04 12:24] LABS: BUN/Creatinine Ratio 14 (6-26); Blood Urea Nitrogen 14 mg/dL (6-20); Calcium 8.9 mg/dL (8.6-10.3); Carbon Dioxide 37 mEq/L (23-29); Chloride 98 mEq/L (98-107); Glucose 138 mg/dL (70-105); Osmolality,Calculated 293 (280-300); Potassium 4.2 mEq/L (3.5-5.1); Sodium 140 mEq/L (136-145); Troponin I 0.07 ng/mL (< 0.04); eGFR For African Americans > 60 (> 60); eGFR For Non-African Americans > 60 (> 60)
[2021-09-04 13:26] LABS: Bilirubin,Urine Negative (Negative); Blood,Urine Negative (Negative); Clarity,Urine Clear (Clear); Color,Urine Colorless (Yellow); Glucose,Urine (UA) Normal (Normal); Ketones,Urine Negative (Negative); Leukocyte Esterase,Urine Negative (Negative); Nitrite,Urine Negative (Negative); Protein,Urine Trace mg/dL (Neg-Trace); Urobilinogen,Urine Normal (Normal)
[2021-09-04] MEDS ORDERED: Melatonin 3 MG TABLET PO PRN (15:21)
[2021-09-04] MEDS ORDERED: Ondansetron 4 MG/2 ML VIAL IVP PRN (15:21)
[2021-09-04] MEDS ORDERED: Iopamidol - 370 500 ML MLS IVP ONE (15:33)
[2021-09-04] MEDS: carvediloL 6.25 MG TABLET PO SCH (16:54)
[2021-09-04] MEDS: Furosemide 40 MG/4 ML VIAL IVP SCH (16:55)
[2021-09-04] MEDS: Acetaminophen 325 MG TABLET PO PRN (17:10)
[2021-09-04] MEDS: *HR* Enoxaparin 40 MG/0.4 ML SYRINGE SQ SCH (20:57)
[2021-09-04] MEDS: Sacubitril/Valsartan 49/51 MG 1 TABLET PO SCH (20:57)
[2021-09-05] MEDS: Acetaminophen 325 MG TABLET PO PRN ×3 (00:10→17:23)
[2021-09-05 01:46] LABS: Hemoglobin 10.8 g/dL (12.9-16.9); Mean Corpuscular HGB Conc 28.4 g/dL (31.6-35.5); Mean Corpuscular Hemoglobin 26.5 pg (28.0-33.3); Mean Corpuscular Volume 93.4 fL (83.0-100.0); Mean Platelet Volume 10.7 fL (9.4-12.4); Platelet Count 259 K/mcL (140-400); Red Blood Count 4.07 M/mcL (4.19-5.50)
[2021-09-05 02:11] LABS: Alanine Aminotransferase 11 Units/L (7-52); Albumin 3.6 g/dL (3.5-5.7); Albumin/Globulin Ratio 1.4 (1.1-2.2); Alkaline Phosphatase 61 Units/L (34-104); Aspartate Amino Transferase 12 Units/L (13-39); BUN/Creatinine Ratio 16 (6-26); Bilirubin,Indirect 0.3 mg/dL (0.0-1.0); Bilirubin,Total 0.3 mg/dL (0.3-1.0); Blood Urea Nitrogen 15 mg/dL (6-20); Calcium 8.6 mg/dL (8.6-10.3); Carbon Dioxide 36 mEq/L (23-29); Chloride 96 mEq/L (98-107); Globulin 2.6 g/dL (2.4-3.5); Glucose 130 mg/dL (70-105); Magnesium 1.8 mg/dL (1.6-2.6); Osmolality,Calculated 291 (280-300); Phosphorous 3.9 mg/dL (2.7-4.5); Potassium 3.7 mEq/L (3.5-5.1); Sodium 139 mEq/L (136-145); Total Protein 6.2 g/dL (6.4-8.9); eGFR For African Americans > 60 (> 60); eGFR For Non-African Americans > 60 (> 60)
[2021-09-05] MEDS: carvediloL 6.25 MG TABLET PO SCH ×2 (08:23→17:08)
[2021-09-05] MEDS: Furosemide 40 MG/4 ML VIAL IVP SCH ×2 (08:23→17:08)
[2021-09-05] MEDS: *HR* Enoxaparin 40 MG/0.4 ML SYRINGE SQ SCH ×2 (08:23→20:42)
[2021-09-05] MEDS: Aspirin Enteric Coated 81 MG Tablet PO SCH (08:23)
[2021-09-05] MEDS: Sacubitril/Valsartan 49/51 MG 1 TABLET PO SCH ×2 (08:23→20:42)
[2021-09-05] MEDS: Spironolactone 25 MG TABLET PO SCH (08:23)
[2021-09-05 09:45] LABS: Adenovirus Not Detected (Not Detect); Bordetella Pertussis Not Detected (Not Detect); Chlamydophila pneumoniae Not Detected (Not Detect); Coronavirus 229E Not Detected (Not Detect); Coronavirus HKU1 Not Detected (Not Detect); Coronavirus NL63 Not Detected (Not Detect); Coronavirus OC43 Not Detected (Not Detect); Human Metapneumovirus Not Detected (Not Detect); Human Rhinovirus/Enterovirus Not Detected (Not Detect); Influenza A Subtype 2009 H1 Not Detected (Not Detect); Influenza B Not Detected (Not Detect); Mycoplasma pneumoniae Not Detected (Not Detect); Parainfluenza Virus 1 Not Detected (Not Detect); Parainfluenza Virus 2 Not Detected (Not Detect); Parainfluenza Virus 3 Not Detected (Not Detect); Parainfluenza Virus 4 Not Detected (Not Detect); Respiratory Syncytial Virus Not Detected (Not Detect); SARS-CoV-2 Not Detected (Not Detect)
[2021-09-06] MEDS: Acetaminophen 325 MG TABLET PO PRN ×3 (02:48→20:48)
[2021-09-06 03:23] LABS: BUN/Creatinine Ratio 16 (6-26); Blood Urea Nitrogen 14 mg/dL (6-20); Calcium 8.8 mg/dL (8.6-10.3); Carbon Dioxide 35 mEq/L (23-29); Chloride 96 mEq/L (98-107); Glucose 159 mg/dL (70-105); Osmolality,Calculated 290 (280-300); Potassium 3.8 mEq/L (3.5-5.1); Sodium 138 mEq/L (136-145); eGFR For African Americans > 60 (> 60); eGFR For Non-African Americans > 60 (> 60)
[2021-09-06] MEDS: carvediloL 6.25 MG TABLET PO SCH ×2 (07:41→16:56)
[2021-09-06] MEDS: *HR* Enoxaparin 40 MG/0.4 ML SYRINGE SQ SCH ×2 (08:32→20:48)
[2021-09-06] MEDS: Spironolactone 25 MG TABLET PO SCH (08:32)
[2021-09-06] MEDS: Sacubitril/Valsartan 49/51 MG 1 TABLET PO SCH ×2 (08:32→20:48)
[2021-09-06] MEDS: Aspirin Enteric Coated 81 MG Tablet PO SCH (08:32)
[2021-09-06] MEDS: Furosemide 40 MG/4 ML VIAL IVP SCH ×2 (08:33→16:56)
[2021-09-07 03:06] LABS: BUN/Creatinine Ratio 16 (6-26); Blood Urea Nitrogen 15 mg/dL (6-20); Calcium 8.8 mg/dL (8.6-10.3); Carbon Dioxide 34 mEq/L (23-29); Chloride 98 mEq/L (98-107); Glucose 144 mg/dL (70-105); Osmolality,Calculated 287 (280-300); Potassium 4.1 mEq/L (3.5-5.1); Sodium 137 mEq/L (136-145); eGFR For African Americans > 60 (> 60); eGFR For Non-African Americans > 60 (> 60)
[2021-09-07] MEDS: Acetaminophen 325 MG TABLET PO PRN ×2 (05:56→12:44)
[2021-09-07] MEDS: Furosemide 40 MG/4 ML VIAL IVP SCH ×2 (07:34→16:49)
[2021-09-07] MEDS: carvediloL 6.25 MG TABLET PO SCH ×2 (07:35→16:45)
[2021-09-07] MEDS: Aspirin Enteric Coated 81 MG Tablet PO SCH (07:36)
[2021-09-07] MEDS: *HR* Enoxaparin 40 MG/0.4 ML SYRINGE SQ SCH ×2 (07:36→20:24)
[2021-09-07] MEDS: Sacubitril/Valsartan 49/51 MG 1 TABLET PO SCH ×2 (07:36→20:24)
[2021-09-07] MEDS: Spironolactone 25 MG TABLET PO SCH (07:36)
[2021-09-07] MEDS ORDERED: Acetaminophen/Aspirin/Caffeine TABLET PO PRN (15:26)
[2021-09-08] MEDS: Sacubitril/Valsartan 49/51 MG 1 TABLET PO SCH (07:25)
[2021-09-08] MEDS: *HR* Enoxaparin 40 MG/0.4 ML SYRINGE SQ SCH (07:25)
[2021-09-08] MEDS: Spironolactone 25 MG TABLET PO SCH (07:25)
[2021-09-08] MEDS: carvediloL 6.25 MG TABLET PO SCH (07:25)
[2021-09-08] MEDS: Aspirin Enteric Coated 81 MG Tablet PO SCH (07:26)
[2021-09-08] MEDS: Furosemide 40 MG/4 ML VIAL IVP SCH (07:26)
[2021-09-08] MEDS: Acetaminophen 325 MG TABLET PO PRN (07:28)
[2021-09-08 07:37] VITALS: BP 121/78; PULSE 90; TEMP 97.7
[2021-09-08 10:01] VITALS: O2SAT 92
== END 2021-09-08 11:33 | disposition home or self-care (01) | DRG 194 ==
LOC: 3ANU 10:43 → EMEROOARM 10:43 → SUATTDRO 15:15 → 3ANU 16:17
PROVIDERS: ADMIT Internal Medicine; ATTEND Internal Medicine